=== PATIENT | female | born 2005 | race Caucasian/White ===

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

== ENCOUNTER 2023-06-02 13:19 | Outpatient (REF) | payer BC, SELFPAY ==
[2023-06-02 16:14] LABS: HCT 41.4 % (36.0-46.0); HGB 13.2 g/dL (11.2-15.7); MCH 29.6 pg (27.0-33.0); MCHC 31.9 % (32.0-36.0); MCV 93 fL (80-95); MPV 9.5 fL (8.0-11.0); Platelet Count 388 10^3/uL (130-400); RBC 4.46 10^6/uL (3.93-5.22); RDW 11.1 % (11.7-14.6); WBC 4.64 10^3/uL (4.4-10.8)
[2023-06-02 16:39] LABS: Lithium 0.8 mmol/l (0.6-1.2)
[2023-06-02 16:52] LABS: ALT 21 U/L (14-59); AST 18 U/L (15-37); Albumin 4.1 g/dL (3.4-5.0); Alkaline Phosphatase 51 U/L (46-116); BUN 13 mg/dL (7-18); Bilirubin, Total 0.4 mg/dL (0.2-1.0); CREATININE 0.8 mg/dL (0.55-1.02); Calcium 9.3 mg/dL (8.5-10.1); Calculated LDL 146 mg/dL (<100); Chloride 106 mmol/L (98-107); Cholesterol 215 mg/dL (<200); Estimated GFR 108.78 (mL/min/1.73m2); Glucose 88 mg/dL (74-106); HDL Cholesterol 59 mg/dL (40-60); Potassium 4.6 mmol/L (3.5-5.1); Sodium 140 mmol/L (136-145); TSH 2.09 uIU/mL (0.52-4.13); Total Protein 7.3 g/dL (6.4-8.2); Triglyceride 54 mg/dL (<150)
[2023-06-02 17:23] LABS: Hemoglobin A1C 4.8 % (<5.7)
== END 2023-06-02 13:20 | disposition home or self-care (01) ==
LOC: NCHCN 13:19
PROVIDERS: Visit Provider Physician Assistant
DX: Z79.899 Other long term (current) drug therapy (principal)
CPT/HCPCS: 80053; 80061; 85027; 80178; 83036; 84439; 84443